=== PATIENT | female | born 1960 | race African-American/Black ===

== ENCOUNTER 2016-06-18 13:54 | Emergency (ER) | payer OTHER ==
[~2016-06-18] VITALS: Ht 157.5 cm; Wt 115.7 kg
[2016-06-18] MEDS ORDERED: [UNRECOGNIZED DRUG - REMARK] (13:59)
[2016-06-18] MEDS ORDERED: VENTOLIN HFA 1818 GM INH (13:59)
[2016-06-18] MEDS ORDERED: BYSTOLIC10 MG PO (13:59)
[2016-06-18] MEDS ORDERED: PREDNISONE 20 M20 MG PO (14:38)
[2016-06-18] MEDS ORDERED: PROMETHAZINE/C118 ML PO (14:38)
[2016-06-18 15:11] VITALS: BP 165/79
[2016-06-19] MEDS ORDERED: TUSSIONEX PENN473 ML PO (23:42)
== END 2016-06-18 15:12 | disposition home or self-care (01) ==
LOC: ER 13:54
DX: J45.909 Unspecified asthma, uncomplicated (principal); I10 Essential (primary) hypertension; Z90.5 Acquired absence of kidney; Z98.890 Other specified postprocedural states

== ENCOUNTER 2016-06-19 22:56 | Emergency (ER) | payer OTHER ==
[~2016-06-19] VITALS: Ht 157.5 cm; Wt 115.7 kg
[~2016-06-19 22:56] MED LIST: BYSTOLIC10 MG PO; PREDNISONE 20 M20 MG PO; PROMETHAZINE/C118 ML PO; VENTOLIN HFA 1818 GM INH; [UNRECOGNIZED DRUG - REMARK]
[2016-06-19] MEDS ORDERED: TUSSIONEX PENN473 ML PO (23:42)
[2016-06-19 23:54] VITALS: BP 194/96
== END 2016-06-20 00:02 | disposition home or self-care (01) ==
LOC: ER 22:56
DX: J06.9 Acute upper respiratory infection, unspecified (principal); I10 Essential (primary) hypertension; Z90.5 Acquired absence of kidney; Z98.890 Other specified postprocedural states

== ENCOUNTER 2019-01-24 14:11 | Inpatient (IN) | payer OTHER ==
[~2019-01-24] VITALS: Ht 157 cm; Wt 110.7 kg
[~2019-01-24 14:11] MED LIST changes: +CLONIDINE HCL0.3 M3 PO; +HYDROCHLOROTH12.5 M1 PO; +LEVAQUIN 500 M500 M2 PO; +PREDNISONE 10 M10 MG PO; +TUSSIONEX PENN473 ML PO
[2019-01-24 14:12] VITALS: BP 191/83
[2019-01-24] MEDS ORDERED: CARVEDILOL12.5 MG PO (14:26)
[2019-01-24 14:46] LABS: HEMOGLOBIN 13.6 gm/dL (12.0-15.0); MCH 25.7 pg (26.0-34.0); MCHC 33.5 g/dL (28.0-37.0); MCV 76.8 fL (80.0-100.0)
[2019-01-24 14:48] LABS: HEMATOCRIT 40.5 % (37.0-47.0); PLATELET COUNT 346 thou/uL (150-400); RBC 5.28 mil/uL (4.20-5.00); RDW 16.4 % (10.5-14.5); WBC 9.7 thou/uL (4.0-11.0)
[2019-01-24 14:58] LABS: ANION GAP 9 mmol/L (7-16); BUN 12 mg/dL (7-18); CALCIUM 9.9 mg/dL (8.5-10.1); CHLORIDE 100 mmol/L (98-107); CO2 25 mmol/L (21-32); CREATININE 1.1 mg/dL (0.6-1.0); GLUCOSE 106 mg/dL (74-106); POTASSIUM 4.6 mmol/L (3.5-5.1); SODIUM 134 mmol/L (136-145)
[2019-01-24 15:07] LABS: ABSOLUTE NEUTROPHILS 7.6 thou/uL (1.4-8.2); ALBUMIN 3.2 g/dL (3.4-5.0); ATYPICAL LYMPHS 2 %; LIPASE 704 U/L (73-393); SGOT 37 U/L (15-37); SGPT 53 U/L (30-65); TOTAL BILIRUBIN 0.5 mg/dL (<0.1-1.0); TOTAL PROTEIN 8.5 g/dL (6.4-8.2); TROPONIN-I <0.06 ng/mL (<0.06)
[2019-01-24 15:08] LABS: ANISOCYTOSIS 1+; HYPOCHROMASIA 2+; MICROCYTES 2+
[2019-01-24 15:21] LABS: MAGNESIUM < 0.1 mg/dL (1.8-2.4)
[2019-01-24 15:42] LABS: URINE BILIRUBIN NEGATIVE (Negative); URINE BLOOD NEGATIVE (Negative); URINE CLARITY CLEAR; URINE COLOR YELLOW; URINE GLUCOSE-RANDOM* NEGATIVE (Negative); URINE KETONES NEGATIVE (Negative); URINE LEUKOCYTES-REFLEX NEGATIVE (Negative); URINE NITRITE-REFLEX NEGATIVE (Negative); URINE PROTEIN (DIPSTICK) NEGATIVE (Negative); URINE SPECIFIC GRAVITY 1.015 (1.005-1.035); URINE UROBILINOGEN 0.2 E.U./dl (0.2-1.0)
[2019-01-24 16:39] LABS: MAGNESIUM 1.8 mg/dL (1.8-2.4); PHOSPHORUS 3.1 mg/dL (2.5-4.9)
[2019-01-24 16:40] LABS: APTT 25.7 Seconds (24.5-32.8); PROTIME 10.3 Seconds (9.3-11.4)
[2019-01-24 17:51] LABS: AMYLASE 64 U/L (25-115); LIPASE 673 U/L (73-393)
[2019-01-24 17:53] LABS: CHOLESTEROL 177 mg/dL (<200); HDL CHOLESTEROL 42 mg/dL (>40); LDL CHOLESTEROL 116 mg/dL (<100); TC:HDL 4.2 Ratio (Not establshd); TRIGLYCERIDE 96 mg/dL (<150); VLDL 19 mg/dL (<40)
[2019-01-24 17:54] LABS: SERUM ASSESSMENT Clear
[2019-01-24 18:40] VITALS: BP 199/86
[2019-01-24 18:55] VITALS: BP 201/85
[2019-01-24 19:30] VITALS: BP 174/74
[2019-01-25] VITALS (7 sets, daily range): BP systolic 152–188; BP diastolic 68–88
[2019-01-25 05:28] LABS: HEMATOCRIT 43.2 % (37.0-47.0); MCH 25.3 pg (26.0-34.0); MCHC 32.5 g/dL (28.0-37.0); MCV 77.8 fL (80.0-100.0); RBC 5.55 mil/uL (4.20-5.00); RDW 16.6 % (10.5-14.5); WBC 8.3 thou/uL (4.0-11.0)
[2019-01-25 05:37] LABS: ANION GAP 10 mmol/L (7-16); BUN 13 mg/dL (7-18); CALCIUM 9.9 mg/dL (8.5-10.1); CHLORIDE 101 mmol/L (98-107); CO2 27 mmol/L (21-32); CREATININE 1.2 mg/dL (0.6-1.0); GLUCOSE 161 mg/dL (74-106); MAGNESIUM 1.8 mg/dL (1.8-2.4); POTASSIUM 3.7 mmol/L (3.5-5.1); SODIUM 138 mmol/L (136-145)
[2019-01-25 06:26] LABS: TROPONIN-I <0.06 ng/mL (<0.06)
--- NOTE | 2019-01-25 08:01 | NUR ---
RECEIVED REPORT FROM DAY SHIFT RN.PATIENT ARRIVED ROOM 209 AT SHIFT CHANGE.A/O X 4.UP INDEPENDENTLY.BP ELEVATED.BP MEDS GIVEN.WAS NAUSEATED AND COMPLAIN OF HEADACHE.ZOFRAN AND TYLENOL WAS GIVEN.MONITOR SHOWS SINUS RHYTHM.ADMISSION DONE.WILL CONTINUE POC.
--- NOTE | 2019-01-25 17:29 | NUR ---
ASSUME CARE AT SHIFT CHANGE, ALERT AND ORIENTED X4. BP REMAINS ELEVATED, MEDICATED INDICATED. TOLERATED LIQUIDE DIET. PROGRESSING TOWARD POC AND WILL CONTINUE TO MONITOR PATIENT.
[2019-01-26 00:30] VITALS: BP 158/78
--- NOTE | 2019-01-26 01:05 | NUR ---
bp rechecked at 2330 and elevated at 187/83 prn hydralizine given, then pt c/o HOANG and tylenol given, 1/2 hr later pt called out and stated pain was unbearable and all of the sudden it was really bad prn ms given and nausea medication, repositioned pt and darkened and quieted room rechecked bp at 158/78 and pt resting quietly in room stated that she was feeling much better and calmer. will con't to monitor per ppoc.
[2019-01-26 02:11] VITALS: BP 157/83
[2019-01-26 03:49] VITALS: BP 189/90
[2019-01-26 05:39] LABS: CALCIUM 10.1 mg/dL (8.5-10.1); CREATININE 1.1 mg/dL (0.6-1.0); POTASSIUM 4.3 mmol/L (3.5-5.1); TOTAL BILIRUBIN 0.3 mg/dL (<0.1-1.0); TOTAL PROTEIN 7.2 g/dL (6.4-8.2)
[2019-01-26 08:15] VITALS: BP 124/90
--- NOTE | 2019-01-26 14:16 | NUR ---
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 At me she reports she lives with spouse who is able to assist at dc. Her PCP is Dr Polo Burrell with [facility] whom she wants all her records to be sent for his f/u care. Plan home no needs.
--- NOTE | 2019-01-26 14:20 | NUR ---
Nutrition: pt admitted with HTN, pancreatitis, acute sinusitis. PMH reviewed. LIpase improved from 704 on admit to now WNL. Tolerated clear liquids and now diet advanced to soft this day. Unable to speak with pt x 2 attempts to visit-sleeping and did not disturb. Weight hx indicates a decline of 20# from last year. BMI remains 44, extreme class 3 obesity. Will attempt followup to obtain further information/determine any education needs. Low nutrition risk.
[2019-01-26 16:20] VITALS: BP 147/67
--- NOTE | 2019-01-26 17:09 | EKG ---
[place] [address] [facility] [place] [address] ELECTROCARDIOGRAM REPORT Name: FLORENTINO VINSON Room #: 209-P ADM IN M.R.#: [id number] Admission: 01/24/19 Attend Phys: Reji Yap Discharge: Date of : 62 Report #: [id number] THIS REPORT FOR: //name// [facility] ED Test Date: 2019-01-24 Test Time: 15:18:42 Pat Name: FLORENTINO VINSON Department: Room: 209 Gender: F Block And Case Maker: tejas : 1960 Requested By: Yair Hillman Order Number: [id number] MD: Bienvenido Cunningham Measurements Intervals [place] Rate: 63 P: 58 WI: 205 QRS: -19 QRSD: 94 T: 59 QT: 441 QTc: 452 Interpretive Statements Sinus rhythm Borderline prolonged WI interval Nonspecific T wave abnormality Compared to ECG 10/22/2017 05:52:56 No significant change was found Electronically Signed On 01-26-2019 17:09:31 CDT by Bienvenido Cunningham [email or web address] <ELECTRONICALLY SIGNED> By: Bienvenido Cunningham MD, [facility] 01/26/19 1709 1518 1518 Bienvenido Cunningham MD, [facility] /EPI
--- NOTE | 2019-01-26 17:53 | NUR ---
ASSUMED CARE AT SHIFT CHANGE, ALERT AND ORIENTED X4. SLEPT MOST OF THE DAY. VSS. C/O NAUSEA MEDICATED NEEDED, AND PATIENT REPORTED RELIEVE. REPORT GIVEN TO LILIAM MARR, AND PATIENT TRANSFERED TO RM 449.
[2019-01-26 19:47] VITALS: BP 167/74
--- NOTE | 2019-01-26 20:07 | NUR ---
Received pt from 2N, pt is steady on her gait and able to transfer from chair to bed and walk to the toilet with ease. VS stable, medication from 2N placed in the pt medication bin. No signs or verbalizations of distress have been noted. endorsed to the night nurse.
--- NOTE | 2019-01-27 00:58 | NUR ---
Assumed pt care at 1900. A/OX4,VSS. Up ad colt without any difficulties. C/o headache,reliefed by Tylenol. Continent of B&B. Resting quietly at this time no distress noted. Spouse spending the night with pt. Encoureaged to call for help as needed. Call light placed within reach.
[2019-01-27 04:03] VITALS: BP 141/57; BP 1471/57
[2019-01-27 08:30] VITALS: BP 182/93
[2019-01-27 08:31] VITALS: BP 170/74
[2019-01-27] MEDS ORDERED: LEVAQUIN 750 M750 MG PO (09:35)
[2019-01-27 10:41] VITALS: BP 170/74
--- NOTE | 2019-01-27 11:51 | NUR ---
Assumed pt care this am pt mentioned that she feesl restless, took the pt out of the room to walk. Pt is steady in her gait, bp elevated managed with medications. No signs or verbalizations of distress have been noted. DC instructions and prescriptions given. IV removed. Pt awaiting pick from her [facility].
== END 2019-01-27 12:17 | disposition home or self-care (01) | DRG 438 ==
LOC: ER 14:11 → EROBS 17:31 → 2N 17:31 → ENTRNSPT 01-26 17:52 → 4W 01-26 18:18 → EDTRNSPTTYP 01-27 12:07 → EDTRNSPT 01-27 12:07 → DELTRNSPT 01-27 12:12 → ENTRNSPT 01-27 12:14 → EDTRNSPTSTS 01-27 12:14 → 4W 01-27 12:17
PROVIDERS: Emergency Medicine; ADMIT Hospitalist
DX: K85.90 Acute pancreatitis without necrosis or infection, unspecified (principal); E43 Unspecified severe protein-calorie malnutrition; I16.9 Hypertensive crisis, unspecified; J32.9 Chronic sinusitis, unspecified; E83.42 Hypomagnesemia; E04.9 Nontoxic goiter, unspecified; D86.9 Sarcoidosis, unspecified; I10 Essential (primary) hypertension; Z90.49 Acquired absence of other specified parts of digestive tract; Z90.5 Acquired absence of kidney; Z86.711 Personal history of pulmonary embolism
CPT/HCPCS: 10047; 10081; 10194

== ENCOUNTER 2019-02-13 05:02 | Inpatient (IN) | payer OTHER ==
[~2019-02-13] VITALS: Ht 157.5 cm; Wt 119.7 kg
--- NOTE | ~2019-02-13 | H ---
[facility] [place] [address] HISTORY AND PHYSICAL Name: FLORENTINO CARDONA Room #: 358-P [facility] IN .R.#: [id number] Admission: 02/13/19 ������������������ Attend Phys: Hailey Ware MD Discharge: ������������������ Date of : 62 Report #: [id number] THIS REPORT FOR: //name// CC: Polo Ware DATE OF SERVICE: 02/13/2019 CHIEF COMPLAINT: 1. Abdominal pain started 4 days ago. 2. Bright red blood per rectum since yesterday. HISTORY OF PRESENT ILLNESS: The patient is a very pleasant 58-year-old morbidly obese female known to our service as she was recently discharged after being diagnosed with pancreatitis. The patient informs me that she went home and did not really have much pain and was actually doing fine and was able to eat and drink normally. She was discharged on 01/27/2019 and she has been taking all her medications pretty regularly and however, then 4 days ago, she started having severe abdominal pain, points to the upper abdominal area and epigastric area. The patient denies any referred pain to the back or to the shoulder. She has had significant nausea, vomiting and diarrhea as well. Then, she was trying to take care of her pain at home with the medications prescribed at the time of discharge; however, yesterday she started having bright red blood per rectum and pretty much all day yesterday. She has had intermittent stools with bright red blood per rectum and then today when she woke up in the morning, she had a large stool with just blood and no stool in it basically and that concerned her significantly, so brought her to the Emergency Room. The patient denies any associated fevers, shaking chills or night sweats, all day nausea and 2 episodes of emesis earlier this morning. Other than that, she has not had any emesis. She denies any hematemesis or hematemesis noted in last 2 days. The patient has not had any cough or sputum production or chest pain or palpitations or dizziness. She has had headache, significant headache this morning since she woke up and when she presented to the Emergency Room, she had a systolic blood pressure of 225 and was treated immediately for hypertensive urgency. In the ER, the patient has had some drop in blood pressure to more like 190/87. The patient informs me that she has been taking all her medications; however, because of the nausea yesterday, she has not been able to take her regular blood pressure medications yesterday evening and this morning. REVIEW OF SYSTEMS: Negative for any weakness or numbness of any part of the body and she denies any difficulty with comprehension or communication. PAST MEDICAL HISTORY: Significant for: 1. Hypertension. 2. Hyperlipidemia. 3. Morbid obesity. [facility] [address] [place] [address] HISTORY AND PHYSICAL Name: FLORENTINO CARDONA Room #: 358-P [facility] IN M.R.#: [id number] Admission: 02/13/19 ������������������ Attend Phys: Hailey Ware MD Discharge: ������������������ Date of : 62 Report #: [id number] 4. Pancreatitis. 5. Chronic kidney disease stage 3. 6. Asthma. 7. Obstructive sleep apnea. PAST SURGICAL HISTORY: Significant for: 1. Cholecystectomy. 2. Tonsillectomy. 3. Right kidney resection, nephrectomy at [facility] several years ago for presumably cancer. 4. Colonoscopies. FAMILY HISTORY: Significant for maternal aunt with breast cancer. Mother is healthy and she does not know much about her father's health history; however, he 5 years ago and she is not aware of cause of . ALLERGIES: The patient is allergic to MORPHINE, more likely intolerance, absolutely no rash or hives noted by the patient or difficulty breathing. CURRENT MEDICATIONS: 1. Coreg. 2. Clonidine. 3. Furosemide. 4. Potassium chloride. 5. Protonix. PERSONAL AND SOCIAL HISTORY: Significant for she is a lifetime nontobacco user and she does not take alcohol either. She lives at home with her , Mr. Miguelito Cardona and her is the emergency contact as well as the durable power of civil attorney for [facility] and he can be reached at [phone]. PHYSICAL EXAMINATION: VITAL SIGNS: When the patient presented to the ER, she had a temperature of 35.6, heart rate 77, respirations 20, blood pressure 225/101, and pulse oximeter 98% on room air. However, at the time of examination at 9:28 a.m., the patient has heart rate of 75, respirations 20, blood pressure 185/92, pulse oximetry 97% on room air. GENERAL: Alert and oriented to time, place and person, very pleasant, morbidly obese female with a BMI of 44.4 and is complaining of headache and abdominal pain and pain level being 8/10. HEENT: Normocephalic, atraumatic. Pupils equally round, reactive to light. Conjunctivae are clear. Her extraocular muscle movements are intact. Her sclerae is nonicteric. Oropharynx is clear. Mucous membranes are moist. Uvula is midline. Angle of mouth is symmetrical. NECK: Supple, no JVD, no lymphadenopathy. HEART: S1, S2 regular. No murmur, no S3, no S4. [facility] [address] [place] [address] HISTORY AND PHYSICAL Name: FLORENTINO CARDONA Room #: 358-P [facility] IN [facility]#: [id number] Admission: 02/13/19 ������������������ Attend Phys: Hailey Ware MD Discharge: ������������������ Date of : 62 Report #: [id number] LUNGS: Clear to auscultation bilaterally without any crackles or wheezes. ABDOMEN: The patient has epigastric tenderness as well as upper abdominal tenderness without any rebound or rigidity. EXTREMITIES: No edema in both lower extremities. NEUROLOGIC: Cranial nerves 2-12 are intact. Motor and sensory exam is grossly normal. LABORATORY DATA AND X-RAYS: Hematology indicates WBC normal at 8.1, hemoglobin 12.5, hematocrit 38.9. The patient has low MCV of 79 and RDW is elevated at 17.5, platelet count is normal at 348. The patient's differential is significant for segmented neutrophils mildly elevated at 67%. Chemistries are significant for sodium 141, potassium 3.7, chloride 103, bicarbonate 28, anion gap 10, BUN 13, creatinine 1.2 and estimated GFR was 56, glucose 132, lactic acid 1.1, calcium 9.9, total bilirubin 0.3, direct bilirubin 0.1, AST 20, ALT 42, alkaline phosphatase 132, total protein is 8.0, albumin 3.2 and lipase is elevated at 1015. I reviewed the lifetime summary and the patient has had estimated GFR anywhere between 56-47-62 since 10/2017 and has stage 3 kidney disease and lipase trend was noted as the patient recently was admitted a month ago with pancreatitis and she was discharged in late 01/2019 with a normal lipase of 174 and 1015 is definitely an elevated value. Imaging studies were reviewed. The patient had CT scan of the head because of hypertensive urgency and severe headache and looks like the patient has mild cerebral atrophy and moderate calcification in the anterior fossa and minor dural calcification, otherwise and also evidence of sinus surgery in the past, is still moderate changes with chronic sinusitis noted; however, no acute sinusitis and no other acute abnormalities noted on the CT scan. Lifetime summary of imaging for abdominal imaging indicated MRI with dilatation of intrahepatic and extrahepatic bile duct without intraluminal filling defect on 01/25/2019 when the patient was being worked up for acute pancreatitis. The patient did have CT scan of abdomen and pelvis without oral or IV contrast secondary to her underlying kidney disease and her right kidney is surgically absent and at that time, the CT scan showed some inflammation and mild peripancreatic fat stranding in the body and tail of the pancreas, but no pancreatic cyst or any other abnormality noted. ASSESSMENT AND PLAN: 1. Hypertensive urgency with severe headache. 2. Bright red blood per rectum and hemoglobin stable at 12.5 and when compared with the lifetime summary, the patient's baseline hemoglobin was 14 when she was discharged from this hospital, so there has been a drop of hemoglobin since the discharge. We will go ahead and get red blood cell scan and monitor hemoglobin H and H. We will continue fluid resuscitation, make sure the patient has two IV accesses and the patient does not have any history of peptic ulcer disease and with the bright red blood per rectum, is likely to be lower gastrointestinal [address] [address] HISTORY AND PHYSICAL Name: FLORENTINO CARDONA Room #: 358-P [facility] IN M.R.#: [id number] Admission: 02/13/19 ������������������ Attend Phys: Hailey Ware MD Discharge: ������������������ Date of : 62 Report #: [id number] bleed. The patient has had history of lower GI bleed in the past. The patient's coagulation panel is completely normal. The patient informs me that she has had colonoscopies and last colonoscopy 2 years ago and she was not told to have any polyp or any abnormalities, so we will go ahead and have GI on board as well and because of the acute on chronic pancreatitis, we would go ahead and consult Surgery as well for maximizing management and if red blood cell scan indicates active site of bleeding, then we will consult IR to do embolization. 3. Hypertensive urgency. The patient has been started on nicardipine drip and we will go ahead and write for her home medication as clonidine can give rebound hypertension and the patient has not taken any since yesterday and because she is unable to take anything by mouth, would go ahead and put clonidine patch instead of oral clonidine and will just give one dose of clonidine p.o. right now. 4. The patient wishes to be full code. 5. Chronic kidney disease stage 3. We will avoid any nephrotoxic agents and we will continue IV fluid resuscitation. 6. We will go ahead and add fluid and electrolyte nutrition. We will give IV fluids and monitor magnesium, potassium and phosphorus and keep magnesium above 2, potassium above 4 and phosphorus above 2. Plan of care was discussed with the patient in detail. ��������������������������������������������� ���������������������������������������� By: ��������������������������������������������� 1007 1120 Hailey Ware MD /shreyas
[~2019-02-13 05:02] MED LIST changes: +CARVEDILOL12.5 MG PO; +LEVAQUIN 750 M750 MG PO
[2019-02-13 05:07] VITALS: BP 225/101
[2019-02-13] MEDS ORDERED: FUROSEMIDE 40 M40 M1 PO (05:16)
[2019-02-13] MEDS ORDERED: POTASS CIT-SOD473 ML PO (05:17)
[2019-02-13 05:40] LABS: ABSOLUTE NEUTROPHILS 5.4 thou/uL (1.4-8.2); EOSINOPHILS 0.1 % (0.0-3.0); HEMATOCRIT 38.9 % (37.0-47.0); HEMOGLOBIN 12.5 gm/dL (12.0-15.0); LYMPHOCYTES 24.6 % (24.0-44.0); MCH 25.4 pg (26.0-34.0); MCHC 32.2 g/dL (28.0-37.0); MCV 79.1 fL (80.0-100.0); MONOCYTES 7.3 % (1.0-8.0); PLATELET COUNT 348 thou/uL (150-400); RBC 4.91 mil/uL (4.20-5.00); RDW 17.5 % (10.5-14.5); WBC 8.1 thou/uL (4.0-11.0)
[2019-02-13 05:44] LABS: ANION GAP 10 mmol/L (7-16); BUN 13 mg/dL (7-18); CALCIUM 9.9 mg/dL (8.5-10.1); CHLORIDE 103 mmol/L (98-107); CO2 28 mmol/L (21-32); CREATININE 1.2 mg/dL (0.6-1.0); GLUCOSE 132 mg/dL (74-106); POTASSIUM 3.7 mmol/L (3.5-5.1); SODIUM 141 mmol/L (136-145)
[2019-02-13 05:50] LABS: ALBUMIN 3.2 g/dL (3.4-5.0); DIRECT BILIRUBIN < 0.1 mg/dL (<0.1-0.3); LIPASE 1015 U/L (73-393); SGOT 20 U/L (15-37); SGPT 42 U/L (30-65); TOTAL BILIRUBIN 0.3 mg/dL (<0.1-1.0)
[2019-02-13 08:10] VITALS: BP 174/92
[2019-02-13 08:27] VITALS: BP 179/96
[2019-02-13 15:23] VITALS: BP 152/80
[2019-02-13 16:32] VITALS: BP 141/75
--- NOTE | 2019-02-13 16:42 | NUR ---
PATIENT ADMIT TO UNIT AT 0645. A/O X4. STARTED CARDINE GTT AT 0930. OFF GTT AT 1630. PATIENT BP 141/75 AT THIS TIME. NO BLEEDING NOTED. C/O ABD PAIN AND HEADACHE. OFFED ICE CHIP TO PATIENT. UP WITH STB. SLOWLY TOWARDS POC GOLAS.
[2019-02-13 17:53] LABS: HEMATOCRIT 42.2 % (37.0-47.0); HEMOGLOBIN 13.3 gm/dL (12.0-15.0)
[2019-02-13 19:07] VITALS: BP 146/78
[2019-02-14 03:38] VITALS: BP 154/84
--- NOTE | 2019-02-14 04:36 | NUR ---
PATIENT IS PROGRESSING SLOWLY IN HER CARE PLAN. VITAL SIGNS STABLE THROUGHOUT SHIFT WITH PATIENT HAVING NO COMPLAINTS OF NAUSEA. PATIENT COMPLAINED OF PAIN PRIMARILY IN ABDOMEN AND HEADACHE WHICH WAS TREATED APPROPRIATELY THROUGH MEDICATIONS. FULLY ORIENTED, PATIENT IS ABLE TO PARTICIPATE IN CARE AND CALL APPROPRIATELY FOR REQUESTS. BREATHING STABLE ON ROOM AIR EVIDENCED BY ASSESSMENT AND SPOT OXYGENATION CHECKS. PATIENT WAS UP MULTIPLE TIMES WITH STANDBY ASSISTANCE INCIDENT FREE. NURSE WAS ASKED TO REEVALUATE HIGH FALL RISK DESIGNATION PRIOR TO SHIFT CHANGE. CONTINUE PLAN OF CARE.
[2019-02-14 05:42] LABS: HEMATOCRIT 43.7 % (37.0-47.0); HEMOGLOBIN 14.1 gm/dL (12.0-15.0); MCH 25.5 pg (26.0-34.0); MCHC 32.2 g/dL (28.0-37.0); MCV 79.3 fL (80.0-100.0); RBC 5.51 mil/uL (4.20-5.00); RDW 17.7 % (10.5-14.5)
[2019-02-14 05:58] LABS: CALCIUM 10.1 mg/dL (8.5-10.1); CREATININE 1.3 mg/dL (0.6-1.0); MAGNESIUM 2.1 mg/dL (1.8-2.4); PHOSPHORUS 4.1 mg/dL (2.5-4.9)
[2019-02-14 07:07] VITALS: BP 157/88
--- NOTE | 2019-02-14 08:56 | CRIT ---
[facility] [place] [address] CRITICAL CARE NOTE Name: FLORENTINO VINSON Room #: 358-P ADM IN .R.#: [id number] Admission: 02/13/19 ������������������ Attend Phys: Hailey Ware MD Discharge: ������������������ Date of : 62 Report #: [id number] THIS REPORT FOR: //name// CC: Polo Ware DATE OF SERVICE: 02/13/2019 HISTORY OF PRESENT ILLNESS: The patient is a 58-year-old female who I have been asked to see for further evaluation of her rectal bleeding, which has occurred over the course of the last day or so with multiple episodes of small amount of maroon stool as well as some black and brightly bloody stools. She also has epigastric abdominal pain and was found to have pancreatitis on her CT scan and by enzymes. PAST MEDICAL HISTORY: Her medical history is well detailed in the chart, but includes hypertension, hyperlipidemia, morbid obesity, pancreatitis, which she has had in the past on one occasion several weeks ago. She also had history of chronic renal insufficiency, asthma, obstructive sleep apnea, cholecystectomy, right kidney resection and tonsillectomy. FAMILY HISTORY: Negative for inflammatory bowel disease or colon cancer or inherited pancreatic disease. SOCIAL HISTORY: She denies alcohol consumption and she does not smoke. MEDICATIONS: Include Coreg, clonidine, furosemide, potassium chloride and Protonix. REVIEW OF SYSTEMS: She denies head, eyes, ears, nose or throat complaints. She denies chest pain, chest palpitation, chest pressure, cough, shortness of breath, wheezing, genitourinary, musculoskeletal or neuropsychiatric complaint. PHYSICAL EXAMINATION: VITAL SIGNS: Afebrile. Vital signs stable. HEENT: Nonicteric. NECK: No JVD, thyromegaly or bruits. CARDIOVASCULAR: Regular. LUNGS: Clear. ABDOMEN: Soft. She does have some epigastric tenderness to palpation. No stigmata of chronic liver disease. No peritoneal signs. NEUROLOGIC: Not performed. RECTAL: Deferred. PERTINENT LABORATORY DATA: Include hemoglobin 12.5, MCV 79, RDW of 17.5, white count 8.1. Chemistry: BUN 13, creatinine 1.2, glucose 132, alkaline [address] [address] CRITICAL CARE NOTE Name: FLORENTINO VINSON Room #: 358-P ADM IN ..#: [id number] Admission: 02/13/19 ������������������ Attend Phys: Hailey Ware MD Discharge: ������������������ Date of : 62 Report #: [id number] phosphatase 132, lipase 1015, albumin 3.2. INR 1.0. IMAGING: Imaging studies reveal abdomen CT from 01/25, which revealed dilated common bile duct post-cholecystectomy without evidence of stone or filling defect. There was a CT abdomen from the same date showing some mild peripancreatic fat stranding. ASSESSMENT AND PLAN: In summary, the patient has recurrent acute pancreatitis. I would check triglycerides and hereditary risk factors with genetic pancreatitis as well as IgG4 to exclude autoimmune pancreatitis. Other considerations include sphincter of Oddi dysfunction, divisum or other anatomic or structural abnormalities. Cancer should be excluded as well; however, there is no mass noted. I would not hesitate to reimage her, however, as her last studies were done approximately 3-4 weeks ago and she has represented. Perhaps elective workup with EUS and sphincter of Oddi studies may be reasonable as her risk factors are minimal. Also, further evaluation with pancreatitis as a side effect from one of her medications even though not recently started is reasonable per pharmacy. I appreciate the opportunity to participate in the care. We will follow concurrently. She did have also bright red rectal bleeding, which sounds like diverticular bleeding versus internal hemorrhoidal bleeding. We will proceed with further evaluation with nuclear medicine RBC scan and possible colonoscopy at some point. I appreciate the opportunity to participate in her care. ��������������������������������������������� <ELECTRONICALLY SIGNED> ���������������������������������������� By: Conner Pedraza MD ��������������������������������������������� 02/14/19 0856 1406 0223 Conner Pedraza MD /nt
--- NOTE | 2019-02-14 11:50 | NUR ---
pt's assessment has done, pt is A&OX3, pt does not s/s GI bleeding since last nigh, PT starts clear liquid diet , pt is tolerate , pt's vs are stable, pt denies pain at this time.pt's family stay at pt's bedside .
[2019-02-14 15:39] VITALS: BP 190/97
[2019-02-14 16:09] LABS: HEMATOCRIT 40.6 % (37.0-47.0); HEMOGLOBIN 13.1 gm/dL (12.0-15.0)
[2019-02-14 18:35] VITALS: BP 143/85
[2019-02-14 19:52] VITALS: BP 158/98
--- NOTE | 2019-02-14 20:13 | NUR ---
RN has reported to dr about pt has blood in stool at 2times and pt's bp is high, new order received, pt has started bowel prep for colonoscopy tomorrow, pt's vs and o2sat are stable at this time.
[2019-02-14 22:35] LABS: HEMATOCRIT 40.8 % (37.0-47.0); HEMOGLOBIN 13.3 gm/dL (12.0-15.0)
[2019-02-15] VITALS (8 sets, daily range): BP systolic 150–194; BP diastolic 76–98
[2019-02-15 05:51] LABS: ABSOLUTE NEUTROPHILS 6.6 thou/uL (1.4-8.2); BASOPHILS 0.3 % (0.0-2.0); EOSINOPHILS 0.1 % (0.0-3.0); HEMATOCRIT 39.7 % (37.0-47.0); HEMOGLOBIN 12.8 gm/dL (12.0-15.0); LYMPHOCYTES 19.2 % (24.0-44.0); MCH 25.4 pg (26.0-34.0); MCHC 32.2 g/dL (28.0-37.0); MCV 79.1 fL (80.0-100.0); MONOCYTES 8.3 % (1.0-8.0); PLATELET COUNT 369 thou/uL (150-400); POLYS 72.1 % (36.0-66.0); RBC 5.02 mil/uL (4.20-5.00); RDW 17.4 % (10.5-14.5); WBC 9.1 thou/uL (4.0-11.0)
[2019-02-15 05:57] LABS: CALCIUM 9.8 mg/dL (8.5-10.1); CREATININE 1.2 mg/dL (0.6-1.0); MAGNESIUM 2.1 mg/dL (1.8-2.4); POTASSIUM 3.6 mmol/L (3.5-5.1); TOTAL BILIRUBIN 0.5 mg/dL (<0.1-1.0); TOTAL PROTEIN 7.4 g/dL (6.4-8.2)
--- NOTE | 2019-02-15 07:26 | NUR ---
PATIENT IS PROGRESSING SLOWLY IN HER CARE PLAN. VITAL SIGNS STABLE WITH PATIENT HAVING MANY COMPLAINTS OF PAIN OR NAUSEA THAT WERE TREATED OFTEN AND EFFECTIVELY BY NURSE. FULLY ORIENTED, PATIENT IS ABLE TO CALL APPROPRIATELY FOR NEEDS AND PARTICIPATE IN CARE. NPO FROM MIDNIGHT ON IN ANTICIPATION OF TODAYS PROCEDURE. BOWEL PREP TO LIMITED SUCCESS WITH PATIENTS NAUSEA AND THE LATE HOUR OF START HAMPERING PROCESS. ORDERS RECEIVED FOR ENEMAS TODAY. UP MANY TIMES TO BATHROOM WITH ASSISTANCE INCIDENT FREE. CONTINUE PLAN OF CARE.
[2019-02-15] MEDS ORDERED: CLONIDINE HCL0.3 M3 PO (10:13)
[2019-02-15] MEDS ORDERED: CARVEDILOL12.5 MG PO (10:14)
[2019-02-15] MEDS ORDERED: FUROSEMIDE 40 M40 M1 PO (10:14)
--- NOTE | 2019-02-15 15:28 | NUR ---
ASSESSMENT: CM REVIEWED CHART AND MET WITH PATIENT AT THE BEDSIDE. PT IS ALERT AND ORIENTED X4. PT WAS ADMITTED WITH PANCREATITIS/ POSSIBLE LOWER GI BLEED. PT REPORTS LIVING IN A HOUSE WITH HER SPOUSE. PT REPORTS BEING FULLY INDEPENDENT WITH ADLS AND AMBULATION. PT REPORTS SHE STILL WORKS. PT STATES HER DOES MOST OF THE DRIVING BUT SHE DOES DRIVE AT TIMES. PT REPORTS NO STEPS TO ENTER THE HOME BUT STATES ABOUT 10 STEPS WITH HANDRAILS TO THE MAIN LEVEL ONCE INSIDE. PT REPORTS SHE HAS NOT HAD HH IN THE PAST OR BEEN TO REHAB/SNF. PT DOES NOT ANTICIPATE HAVING ANY NEEDS AT DISCHARGE. PT IS GETTING COLONOSCOPY.
--- NOTE | 2019-02-15 18:30 | NUR ---
pt is A&OX3, PT has done procedure colonoscopy today, finding diverticula in the sigmoid colon but no evidence of bleeding, possible bleeding areas from hemorrhoids, RN has update this findings to pt and her , pt has medications for pain and high BP, RN has reported to , PT has one time blood small stool after procedure, pt has slowly meeting care plan goals.
[2019-02-15 20:20] LABS: HEMOGLOBIN 12.8 gm/dL (12.0-15.0)
--- NOTE | 2019-02-16 05:32 | NUR ---
ASSUMED CARE AT 1900. PT C/O HEADACHE THAT HAS GOTTEN WORSE OVERNIGHT; DID NOT IMPROVE AFTER GIVING HYDRALAZINE FOR HIGH BP AND TYLENOL DIDN'T HELP EITHER. OBTAINED ORDER FOR FIOROCET. PT ALSO REPORTED NAUSEA, GAVE ZOFRAN FIRST AND PT REPORTED SHE STILL FELT NAUSEATED SO GAVE COMPAZINE A COUPLE HOURS AFTER. HAS BEEN SR ON TELE, HR IN 80'S OVERNIGHT. PT REFUSED BED ALARM, STATED HER WOULD HELP HER OVERNIGHT. NO OTHER CONCERNS, WILL CONTINUE TO MONITOR.
[2019-02-16 05:35] LABS: HEMATOCRIT 39.7 % (37.0-47.0); HEMOGLOBIN 12.7 gm/dL (12.0-15.0); MCH 25.6 pg (26.0-34.0); MCV 79.9 fL (80.0-100.0); RBC 4.96 mil/uL (4.20-5.00); RDW 17.9 % (10.5-14.5); WBC 8.1 thou/uL (4.0-11.0)
[2019-02-16 05:46] LABS: CALCIUM 9.8 mg/dL (8.5-10.1); CREATININE 1.2 mg/dL (0.6-1.0); PHOSPHORUS 3.8 mg/dL (2.5-4.9); POTASSIUM 4.3 mmol/L (3.5-5.1)
[2019-02-16 06:11] VITALS: BP 158/77
[2019-02-16 07:43] VITALS: BP 176/98
[2019-02-16 12:02] VITALS: BP 181/91
[2019-02-16 13:13] VITALS: BP 181/91
--- NOTE | 2019-02-16 14:10 | NUR ---
DISCHARGED PATIENT AROUND 1400. PATIENT HAD BEEN HAVING ELEVATED BP TO WHICH I REFERRED TO MY PRECEPTOR MATHEW VALENCIA AND HE COMMUNICATED WITH DR PRADHAN. DR PRADHAN ORDERED AN ADDITIONAL DOSE OF COREG AND SAID IT WAS FINE TO SEND HER ON HER WAY HOME.
--- NOTE | 2019-02-16 15:37 | P ---
[facility] [place] [address] PROCEDURE REPORT Name: FLORENTINO VINSON Room #: 358-P [facility] IN ..#: [id number] Admission: 02/13/19 ������������������ Attend Phys: Hailey Ware MD Discharge: 02/16/19 ������������������ Date of : 62 Report #: [id number] THIS REPORT FOR: //name// CC: Polo Ware INPATIENT COLONOSCOPY BRIEF HISTORY: The patient is a 58-year-old woman who was admitted to [facility] and was found to have pancreatitis. She also had difficulties with high blood pressure and she was evaluated for hypertensive crisis and no issues were identified. She has had rectal bleeding, continued to have rectal bleeding during the hospitalization. She does have a history of hemorrhoids. She has had colonoscopy in the past for polyps with most recent several years ago. She does not recall at what institution. PREOPERATIVE DIAGNOSIS: Persistent rectal bleeding and history of colon polyps. POSTOPERATIVE DIAGNOSES: 1. Patchy colitis, cecum and ascending colon, uncertain significance. 2. Moderate sigmoid diverticulosis coli. 3. Moderate combined internal and external hemorrhoids. MEDICATIONS: Deep sedation with propofol per anesthesia. SPECIMEN: Biopsies of questionable colitis, ascending colon and cecum. ESTIMATED BLOOD LOSS: 3 mL. PROCEDURE: Colonoscopy to cecum and terminal ileum with biopsy. FINDINGS: Prior to propofol sedation, procedure of colonoscopy was discussed with the patient as well as potential risks and its complications. She indicates she understands and desires to proceed. DESCRIPTION OF PROCEDURE: With the patient in left lateral decubitus position, digital examination was completed, which revealed no abnormalities. Subsequently, the Olympus video colonoscope was introduced in the rectum and advanced under direct vision to the cecum. Done with minimal difficulty. Cecum was identified by the ileocecal valve and the appendiceal orifice. I was able to visualize the distal segment of the terminal ileum and no mucosal abnormalities were seen. Specifically, there was no evidence of bleeding or inflammatory disease. At that point, the scope was slowly withdrawn and careful circumferential views were obtained. Upon slow withdrawal of the scope, the mucosa was inspected. It was noted the prep was good. In the cecum and proximal ascending colon, there was vague evidence of a mild exudative process. [facility] [address] [place] [address] PROCEDURE REPORT Name: FLORENTINO VINSON Room #: 358-P DIS IN .R.#: [id number] Admission: 02/13/19 ������������������ Attend Phys: Hailey Ware MD Discharge: 02/16/19 ������������������ Date of : 62 Report #: [id number] There was some whitish material which looked like exudate. Typical pseudomembranes of C. diff were not seen. This area was washed away, and once it was cleared away, there was noted to be a loss of vascularity. There may be an inflammatory process. I do not see any evidence of active bleeding. ____ was obtained to evaluate for C. diff toxin and biopsies were obtained as well. The scope was further withdrawn and no additional exudative changes were seen elsewhere in the colon, and the mucosa throughout the remaining colon was completely normal without inflammatory changes. No polyps were identified on this examination. No abnormalities were noted until the sigmoid colon was reached, at which point there was noted to be mild to moderate sigmoid diverticular disease without evidence of diverticulitis. Also, there was no evidence of diverticular bleeding. The scope was withdrawn in the rectum and no abnormalities were seen. Upon retroflexion, moderate combined internal and external hemorrhoids were seen. There was erythema, but there were no clots and there was no evidence of active bleeding. Blood was not seen on this examination. Scope was withdrawn and the patient tolerated the procedure well. CONDITION OF THE PATIENT UPON DISCHARGE: Following procedure, the patient was drowsy, aroused, conversant and will be discharged home when fully ambulatory. INSTRUCTIONS TO THE PATIENT AND FAMILY AT THE TIME OF DISCHARGE: The bleeding is most likely coming from hemorrhoids, although active hemorrhoidal bleeding is not seen at this point in time. Suggest high-fiber diet. She may use hydrocortisone product, either cream or suppositories, as needed for hemorrhoids. I will follow up on biopsies and stool aspirates with regards to the possible colitis in the very proximal ascending colon. Again, the findings were very mild. As far as colorectal screening, no neoplastic lesions were seen today. She reports polyps on 2 prior colonoscopies. I do not have any information on those polyps. It is not clear to me whether she had advanced adenomas or not. Therefore, on the conservative side, I would suggest she return in 5 years for a followup colonoscopy. Again, she does not recall exactly when or where the last colonoscopy was completed. ��������������������������������������������� <ELECTRONICALLY SIGNED> ���������������������������������������� By: Polo Quinteros MD ��������������������������������������������� 02/16/19 1537 [id number] Polo Quinteros MD /shreyas
--- NOTE | 2019-02-17 19:06 | PATH ---
[facility] [address] [place] [address] PATHOLOGY RPT PROCEDURE Name: FLORENTINO VINSON Room #: 358-P DIS IN M.R.#: [id number] ������������������ Admission: 02/13/19 ������������������ Date of : 62 Discharge: 02/16/19 Report #: [id number] Path Case #: [id number] [facility] Accession Number: [id number] . 01 Material submitted: . colon - CECUM AND ASCENDING COLON BX. Modifiers: ascending . 01 Clinical history: . Preop DX: GI bleed Postop DX: Diverticulosis, patchy colitis, hemorrhoids R/O colitis . 02 Diagnosis: Large intestine mucosa, cecum and ascending colon rule out colitis, endoscopic biopsy: - Mild to moderate active colitis. - Negative for dysplasia or malignancy. LBQ 02/17/2019 1144 Local . 02 Comment: Examination shows markedly expanded lamina propria comprised of lymphocytes and plasma cells. Surface epithelial ulceration is not present; however, mild to moderate cryptitis along with crypt abscess formation is evident. Subtle architectural abnormalities are present as well. All findings are suggestive of an early inflammatory bowel disease. The differential diagnosis includes an active episode of infectious-type of colitis, medication induced colitis, as well as diverticulitis involving the proximal part of the large intestine. There are no granulomata or viral inclusions present. There is no dysplasia or malignancy present. Please correlate clinically and follow-up as indicated. (IUV/db; 02/17/2019) . 02 Electronically signed: . Adalgisa Us MD, Pathologist NPI- [id number] . 01 Gross description: . Received in formalin labeled "Florentino Vinson, BX cecum and ascending colon R/O colitis," are five fragments of bowles soft tissue measuring 0.8 x 0.5 x 0.3 cm in aggregate dimensions and ranging from 0.2 to 0.5 cm in maximum dimension. The specimen is submitted entirely in cassette A1. The smallest fragment may not survive processing. ([facility]; 02/16/2019) XDC/XDC 02/16/2019 0903 Local . 02 Pathologist provided ICD-10: [address] [address] PATHOLOGY RPT PROCEDURE Name: FLORENTINO VINSON Francine Room #: 358-P DIS IN M.R.#: [id number] ������������������ Admission: 02/13/19 ������������������ Date of : 62 Discharge: 02/16/19 Report #: [id number] Path Case #: [id number] K52.9, K92.2 . 02 CPT . 180785 Specimen Comment: A courtesy copy of this report has been sent to Specimen Comment: [phone], , . Specimen Comment: Report sent to ,DR FREGOSO / DR EMERY Performed at: [address] [facility], [place], [place] [id number] MD Abran Chirinos MD Phone: [phone] Performed at: [address] [facility] [id number] MD Adalgisa Us MD Phone: [phone]
== END 2019-02-16 14:00 | disposition home or self-care (01) | DRG 377 ==
LOC: ER 05:02 → EROBS 06:25 → 3W 06:25
PROVIDERS: Emergency Medicine; ADMIT Internal Medicine
PROC: 0DBH8ZX Excision of Cecum, Via Natural or Artificial Opening Endoscopic, Diagnostic (ICD-10-PCS; principal; 2019-02-15)
PROC: 0DBK8ZX Excision of Ascending Colon, Via Natural or Artificial Opening Endoscopic, Diagnostic (ICD-10-PCS; principal; 2019-02-15)
DX: K57.31 Diverticulosis of large intestine without perforation or abscess with bleeding (principal); K85.90 Acute pancreatitis without necrosis or infection, unspecified; Z68.42 Body mass index [BMI] 45.0-49.9, adult; K86.1 Other chronic pancreatitis; I16.0 Hypertensive urgency; I12.9 Hypertensive chronic kidney disease with stage 1 through stage 4 chronic kidney disease, or unspecified chronic kidney disease; N18.3 Chronic kidney disease, stage 3 (moderate); D86.9 Sarcoidosis, unspecified; K52.9 Noninfective gastroenteritis and colitis, unspecified; K64.4 Residual hemorrhoidal skin tags; K64.8 Other hemorrhoids; J45.909 Unspecified asthma, uncomplicated; E78.5 Hyperlipidemia, unspecified; K21.9 Gastro-esophageal reflux disease without esophagitis; G47.33 Obstructive sleep apnea (adult) (pediatric); E66.01 Morbid (severe) obesity due to excess calories; Z90.5 Acquired absence of kidney; Z90.49 Acquired absence of other specified parts of digestive tract; Z86.010 Personal history of colon polyps; Z79.899 Other long term (current) drug therapy; Z88.5 Allergy status to narcotic agent; Z80.3 Family history of malignant neoplasm of breast
CPT/HCPCS: 10879; 62110; 62900; 70005

== ENCOUNTER 2019-06-10 23:37 | Emergency (ER) | payer OTHER ==
[~2019-06-10] VITALS: Ht 157.5 cm; Wt 103.9 kg
[~2019-06-10 23:37] MED LIST changes: +FUROSEMIDE 40 M40 M1 PO; +POTASS CIT-SOD473 ML PO
[2019-06-10] MEDS ORDERED: ALBUTEROL2.5 MG/3 M INH (23:49)
[2019-06-10] MEDS ORDERED: CARVEDILOL25 MG PO (23:49)
[2019-06-11 02:09] VITALS: BP 223/95
== END 2019-06-11 02:22 | disposition home or self-care (01) ==
LOC: ER 23:37
DX: J06.9 Acute upper respiratory infection, unspecified (principal); I10 Essential (primary) hypertension; J45.909 Unspecified asthma, uncomplicated; Z90.49 Acquired absence of other specified parts of digestive tract; Z86.2 Personal history of diseases of the blood and blood-forming organs and certain disorders involving the immune mechanism